=== PATIENT | male | born 1955 | race Caucasian/White ===

== ENCOUNTER 2024-07-31 09:56 | Day surgery (SDC) | payer MEDICARE, MEDICAID ==
[~2024-07-31] VITALS: Ht 175.3 cm; Wt 49.9 kg
[2024-07-31] MEDS ORDERED: MIDAZOLAM HCL 5 MG/5 ML VIAL ONE (11:17)
[2024-07-31] MEDS ORDERED: fentaNYL CITRATE/PF 100 MCG/2 ML AMP ONE (11:17)
[2024-07-31 14:30] VITALS: BP_SYST 114; PULSE 81; RESP 18; TEMP 98.7; O2SAT 97
== END 2024-07-31 13:40 | disposition home or self-care (01) ==
LOC: SDS 09:56 → SMU 09:57 → SDS 13:40
PROVIDERS: ATTEND Internal Medicine
DX: K51.90 Ulcerative colitis, unspecified, without complications (principal); K63.89 Other specified diseases of intestine; K57.30 Diverticulosis of large intestine without perforation or abscess without bleeding; K64.8 Other hemorrhoids; E78.5 Hyperlipidemia, unspecified; Z79.899 Other long term (current) drug therapy
CPT/HCPCS: 45380; 88305; 99152; G0378; J2250; J3010